=== PATIENT | female | born 1950 | race African-American/Black ===

== ENCOUNTER 2017-02-25 22:41 | Emergency (ER) | payer BC, MEDICARE ==
[~2017-02-25] VITALS: Ht 160 cm; Wt 95.0 kg
[2017-02-25] MEDS ORDERED: METO100T5 PO (23:12)
[2017-02-25] MEDS ORDERED: METF500T4 PO (23:13)
[2017-02-25] MEDS ORDERED: HYDR25TA PO (23:13)
[2017-02-25] MEDS ORDERED: LABETALOL 5MG/ML SYR 20 MG/4 ML SYRINGE IV ONE (23:45)
[2017-02-25 23:55] LABS: BASOPHILS % 0.3 % (0.0-2.0); EOSINOPHILS % 3.1 % (0.0-5.0); HEMATOCRIT. 43.2 % (36.0-48.0); HEMOGLOBIN. 15.3 g/dL (12.0-16.0); MEAN CORPUSCULAR HEMOGLOBIN 29.9 pg (28.0-32.0); MEAN CORPUSCULAR VOLUME 84.5 fL (81.0-99.0); MEAN PLATELET VOLUME 8.7 fl (7.4-10.4); MONOCYTES % 6.7 % (2.0-8.0); NEUTROPHILS % 58.9 % (40.0-76.0); PLATELET 296 x1000/uL (130-400); RED BLOOD CELL COUNT 5.11 mill/uL (4.2-5.4); RED CELL DISTRIBUTION WIDTH 14.3 % (11.6-14.6)
[2017-02-26 00:16] LABS: CARBON DIOXIDE 32 mEq/L (21-32); CHLORIDE 104 mEq/L (98-107); TROPONIN I < 0.02 ng/mL (0.00-0.04)
[2017-02-26 02:23] VITALS: BP 151/98
== END 2017-02-26 02:36 | disposition home or self-care (01) ==
LOC: ER 02-26 00:22
DX: I10 Essential (primary) hypertension (principal); R00.2 Palpitations; R06.02 Shortness of breath; R05 Cough; J45.909 Unspecified asthma, uncomplicated; E11.9 Type 2 diabetes mellitus without complications
CPT/HCPCS: 36415; 71010; 80053; 82962; 83880; 84484; 85025; 93005; 96374; 99285; J3490; Z7610

== ENCOUNTER 2017-02-28 05:54 | Emergency (ER) | payer BC, MEDICARE ==
[~2017-02-28] VITALS: Ht 160 cm; Wt 91.0 kg
[~2017-02-28 05:54] MED LIST: HYDR25TA PO; METF500T4 PO; METO100T5 PO
[2017-02-28 07:02] LABS: BASOPHILS % 1.4 % (0.0-2.0); EOSINOPHILS % 6.3 % (0.0-5.0); HEMATOCRIT. 43.1 % (36.0-48.0); HEMOGLOBIN. 14.7 g/dL (12.0-16.0); LYMPHOCYTES % 42.7 % (20.0-50.0); MEAN CORPUSCULAR VOLUME 85.1 fL (81.0-99.0); MEAN PLATELET VOLUME 8.5 fl (7.4-10.4); MONOCYTES % 7.8 % (2.0-8.0); NEUTROPHILS % 41.8 % (40.0-76.0); PLATELET 296 x1000/uL (130-400); RED BLOOD CELL COUNT 5.06 mill/uL (4.2-5.4); RED CELL DISTRIBUTION WIDTH 14.4 % (11.6-14.6)
[2017-02-28 07:12] LABS: PARTIAL THROMBOPLASTIN TIME 32.6 sec (24.0-34.0); PROTHROMBIN TIME 10.6 sec
[2017-02-28] MEDS ORDERED: LABETALOL HCL 20MG/4ML CARPUJECT IV ONE (07:15)
[2017-02-28 07:17] LABS: CARBON DIOXIDE 34 mEq/L (21-32); CHLORIDE 101 mEq/L (98-107)
[2017-02-28 07:22] LABS: TROPONIN I < 0.02 ng/mL (0.00-0.04)
[2017-02-28] MEDS ORDERED: LABETALOL 5MG/ML SYR 20 MG/4 ML SYRINGE IV ONE (07:30)
[2017-02-28 08:27] VITALS: BP 141/85
== END 2017-02-28 09:12 | disposition home or self-care (01) ==
LOC: ER 05:54
DX: I10 Essential (primary) hypertension (principal); E78.00 Pure hypercholesterolemia, unspecified; E11.9 Type 2 diabetes mellitus without complications; J45.909 Unspecified asthma, uncomplicated; Z88.8 Allergy status to other drugs, medicaments and biological substances
CPT/HCPCS: 36415; 71010; 80053; 82962; 83690; 84484; 85025; 85610; 85730; 93005; 96374; 99285; J3490

== ENCOUNTER 2017-10-18 18:55 | Inpatient (IN) | payer BC, MEDICARE ==
[~2017-10-18] VITALS: Ht 167.6 cm; Wt 84.9 kg
[~2017-10-18 18:55] MED LIST changes: +METO100T16 PO; -METO100T5 PO
[2017-10-18 20:44] LABS: BASOPHILS % 0.7 % (0.0-2.0); EOSINOPHILS % 0.7 % (0.0-5.0); HEMATOCRIT. 43.2 % (36.0-48.0); HEMOGLOBIN. 14.4 g/dL (12.0-16.0); LYMPHOCYTES % 15.9 % (20.0-50.0); MEAN CORPUSCULAR VOLUME 86.8 fL (81.0-99.0); MONOCYTES % 5.9 % (2.0-8.0); NEUTROPHILS % 76.8 % (40.0-76.0); PLATELET 309 x1000/uL (130-400); RED BLOOD CELL COUNT 4.98 mill/uL (4.2-5.4); RED CELL DISTRIBUTION WIDTH 14.2 % (11.6-14.6)
[2017-10-18 20:50] LABS: CHLORIDE 100 mEq/L (98-107)
[2017-10-18] MEDS ORDERED: ENOXAPARIN 100MG/ML SYR SUBCUT ONE (22:30)
[2017-10-18] MEDS ORDERED: ASPIRIN 325MG EC TABLET PO ONE (22:30)
[2017-10-18] MEDS ORDERED: IPRATROPIUM/ALBUTEROL 0.5-3(2.5)MG/3ML NEB INH PRN (22:45)
[2017-10-18] MEDS ORDERED: LORAZEPAM 0.5MG TABLET PO PRN (22:45)
[2017-10-18] MEDS ORDERED: MORPHINE SULFATE 4 MG/ML CPJ (NOT FOR IM USE) IV PRN (22:45)
[2017-10-18] MEDS ORDERED: ACETAMINOPHEN 325MG TABLET PO PRN (22:45)
[2017-10-18] MEDS ORDERED: ONDANSETRON HCL 4MG/2ML VIAL IV PRN (22:45)
[2017-10-18] MEDS ORDERED: DIPHENHYDRAMINE 50MG/ML VIAL IV PRN (22:45)
[2017-10-18] MEDS ORDERED: NA PHOS,M-B/NA PHOS,DI-BA ENEMA 118ML PR PRN (22:45)
[2017-10-18] MEDS ORDERED: TRAMADOL 50MG TABLET PO PRN (22:45)
[2017-10-18] MEDS ORDERED: MAGNESIUM/ALUMINUM HYDROXIDE/SIMETHICONE 30ML UDC PO PRN (22:45)
[2017-10-18] MEDS ORDERED: DEXTROSE 50% WATER 50ML SYRINGE IV PRN (22:45)
[2017-10-18] MEDS ORDERED: GUAIFENESIN 200MG/10ML SUGAR FREE UDC PO PRN (22:45)
[2017-10-18] MEDS ORDERED: NITROGLYCERIN 0.4MG TABLET SL SL PRN (22:45)
[2017-10-18] MEDS: CLONIDINE 0.1MG TABLET PO PRN (23:31)
[2017-10-19 06:34] LABS: CREATINE KINASE MB FRACTION 1.9 ng/mL (0.5-3.6)
[2017-10-19] MEDS: CLONIDINE 0.1MG TABLET PO PRN (07:52)
[2017-10-19] MEDS: INSULIN LISPRO 100 UNITS/ML SUBCUT SCH ×4 (08:20→21:00)
[2017-10-19 09:00] VITALS: BP 165/112
[2017-10-19] MEDS ORDERED: LISINOPRIL 20MG TABLET PO SCH (09:00)
[2017-10-19] MEDS ORDERED: AMLODIPINE 2.5MG TABLET PO SCH (09:00)
[2017-10-19] MEDS: BLOOD SUGAR DIAGNOSTIC STRIP TEST SCH ×4 (09:25→21:23)
[2017-10-19] MEDS: FAMOTIDINE 20MG/2ML VIAL IV SCH ×2 (09:26→21:12)
[2017-10-19] MEDS: ENOXAPARIN 60MG/0.6ML SYR SUBCUT SCH ×2 (09:27→21:15)
[2017-10-19] MEDS: METOPROLOL TARTRATE 25MG TABLET PO SCH ×2 (09:27→21:13)
[2017-10-19] MEDS: ASPIRIN 325MG EC TABLET PO SCH (09:27)
[2017-10-19] MEDS ORDERED: METF500T4 PO (10:01)
[2017-10-19] MEDS ORDERED: AMLO10TA80 PO (10:01)
[2017-10-19] MEDS ORDERED: STAR120 PO (10:01)
[2017-10-19] MEDS ORDERED: ASPI-1159 PO (10:01)
[2017-10-19] MEDS ORDERED: ALBU18HF2 IH (10:01)
[2017-10-19] MEDS ORDERED: VALS160T2 PO (10:01)
[2017-10-19] MEDS ORDERED: CLON0.3T PO (10:01)
[2017-10-19 10:04] VITALS: BP 165/112
[2017-10-19 11:49] VITALS: BP 154/101
[2017-10-19 12:34] LABS: INR 1.1; PROTHROMBIN TIME 11.4 sec (9.4-11.6)
[2017-10-19] MEDS ORDERED: HYDRALAZINE 20MG/ML VIAL IV PRN (15:15)
[2017-10-19 15:23] LABS: *AMPHETAMINES SCREEN URINE NEGATIVE (NEGATIVE); *BARBITURATES SCREEN URINE NEGATIVE (NEGATIVE); *BENZODIAZEPINES SCREEN URINE NEGATIVE (NEGATIVE); *COCAINE SCREEN URINE NEGATIVE (NEGATIVE); CANNABINOID URINE SCREEN NEGATIVE (NEGATIVE); METHADONE URINE SCREEN NEGATIVE (NEGATIVE); OPIATES URINE SCREEN NEGATIVE (NEGATIVE); PHENCYCLIDINE URINE SCREEN NEGATIVE (NEGATIVE)
[2017-10-19] MEDS: NITROGLYCERIN OINT 1GM/INCH UDPKT TD SCH ×3 (15:56→23:26)
[2017-10-19 15:59] VITALS: BP 146/106
[2017-10-19 16:11] LABS: CREATINE KINASE MB FRACTION 1.3 ng/mL (0.5-3.6)
[2017-10-19] MEDS ORDERED: ZOLPIDEM TARTRATE 5MG TABLET PO PRN (19:00)
[2017-10-19 20:00] VITALS: BP 128/90
[2017-10-19] MEDS: ATORVASTATIN CALCIUM 40MG TABLET PO SCH (21:12)
[2017-10-19] MEDS: AMLODIPINE 5MG TABLET PO SCH (21:13)
[2017-10-19 23:15] VITALS: BP 130/87
[2017-10-19] MEDS: HYDRALAZINE HCL 50MG TABLET PO SCH (23:26)
[2017-10-20] VITALS (20 sets, daily range): BP systolic 116–169; BP diastolic 62–98
[2017-10-20] MEDS: NITROGLYCERIN OINT 1GM/INCH UDPKT TD SCH ×5 (04:00→20:00)
[2017-10-20] MEDS: HYDRALAZINE HCL 50MG TABLET PO SCH ×3 (06:04→22:03)
[2017-10-20] MEDS: INSULIN LISPRO 100 UNITS/ML SUBCUT SCH ×4 (06:06→21:00)
[2017-10-20] MEDS: BLOOD SUGAR DIAGNOSTIC STRIP TEST SCH ×4 (06:06→20:29)
[2017-10-20 07:06] LABS: BASOPHILS % 0.9 % (0.0-2.0); EOSINOPHILS % 2.9 % (0.0-5.0); HEMATOCRIT. 44.1 % (36.0-48.0); HEMOGLOBIN. 15.1 g/dL (12.0-16.0); MEAN CORPUSCULAR HEMOGLOBIN 29.7 pg (28.0-32.0); MEAN CORPUSCULAR VOLUME 86.9 fL (81.0-99.0); MEAN PLATELET VOLUME 8.3 fl (7.4-10.4); NEUTROPHILS % 39.2 % (40.0-76.0); PLATELET 328 x1000/uL (130-400); RED BLOOD CELL COUNT 5.07 mill/uL (4.2-5.4); RED CELL DISTRIBUTION WIDTH 13.9 % (11.6-14.6)
[2017-10-20] MEDS: FAMOTIDINE 20MG/2ML VIAL IV SCH ×2 (08:37→20:29)
[2017-10-20] MEDS: ASPIRIN 325MG EC TABLET PO SCH (08:38)
[2017-10-20] MEDS: METOPROLOL TARTRATE 25MG TABLET PO SCH ×2 (08:38→20:28)
[2017-10-20] MEDS: AMLODIPINE 5MG TABLET PO SCH ×2 (08:38→20:29)
[2017-10-20 08:46] LABS: CHLORIDE 102 mEq/L (98-107)
[2017-10-20 09:05] LABS: HDL CHOLESTEROL 78 mg/dL (40-59); LDL CHOLESTEROL 127 mg/dL (5-100)
[2017-10-20] MEDS ORDERED: HEPARIN SODIUM 1,000 UNIT/1ML VIAL IV ONE (11:07)
[2017-10-20] MEDS ORDERED: NICARDIPINE 100MCG/ML 10ML VIAL (CATH LAB) IV ONE (11:07)
[2017-10-20] MEDS ORDERED: NITROGLYCERIN 50MCG/ML 10ML VIAL (CATH LAB) IV ONE (11:07)
[2017-10-20] MEDS ORDERED: LIDOCAINE HCL 1% 20ML VIAL (Pyxis) INJ ONE (11:44)
[2017-10-20] MEDS ORDERED: IODIXANOL 320MG/ML 100 ML BOTTLE IV ONE (11:44)
[2017-10-20] MEDS ORDERED: ASPIRIN/SOD BICARB/CITRIC ACID 324MG TAB EFF ONE (11:52)
[2017-10-20] MEDS ORDERED: MIDAZOLAM HCL 2 MG/2 ML VIAL ONE (12:05)
[2017-10-20] MEDS ORDERED: FENTANYL CITRATE/PF 50MCG/ML 2ML VIAL ONE (12:06)
[2017-10-20] MEDS ORDERED: IOVERSOL 240MG/ML 100ML BOTTLE IV ONE (12:34)
[2017-10-20] MEDS ORDERED: CLOPIDOGREL 75MG TABLET ONE (12:56)
[2017-10-20] MEDS ORDERED: HYDRALAZINE 20MG/ML VIAL ONE (13:08)
[2017-10-20] MEDS ORDERED: ONDANSETRON HCL 4MG/2ML VIAL IV PRN (13:15)
[2017-10-20] MEDS ORDERED: ATROPINE SULFATE 1MG/10ML SYR IV PRN ×2 (13:15)
[2017-10-20] MEDS ORDERED: CLOPIDOGREL 75MG TABLET PO ONE (13:15)
[2017-10-20] MEDS ORDERED: MORPHINE SULFATE 4 MG/ML CPJ (NOT FOR IM USE) IV PRN (13:15)
[2017-10-20] MEDS ORDERED: ACETAMINOPHEN 325MG TABLET PO PRN ×2 (13:15)
[2017-10-20] MEDS: LOSARTAN POTASSIUM 25 MG TABLET PO SCH ×2 (14:10→20:29)
[2017-10-20] MEDS: ATORVASTATIN CALCIUM 40MG TABLET PO SCH (20:28)
[2017-10-20] MEDS ORDERED: ATORVASTATIN CALCIUM 20MG TABLET PO SCH (21:00)
[2017-10-21] VITALS (17 sets, daily range): BP systolic 114–180; BP diastolic 64–117
[2017-10-21] MEDS: NITROGLYCERIN OINT 1GM/INCH UDPKT TD SCH ×4 (00:05→12:00)
[2017-10-21] MEDS: BLOOD SUGAR DIAGNOSTIC STRIP TEST SCH ×4 (06:36→20:22)
[2017-10-21] MEDS: HYDRALAZINE HCL 50MG TABLET PO SCH ×3 (06:42→22:22)
[2017-10-21 07:06] LABS: BASOPHILS % 0.5 % (0.0-2.0); EOSINOPHILS % 0.4 % (0.0-5.0); HEMATOCRIT. 40.2 % (36.0-48.0); HEMOGLOBIN. 13.4 g/dL (12.0-16.0); LYMPHOCYTES % 9.4 % (20.0-50.0); MEAN CORPUSCULAR VOLUME 87.5 fL (81.0-99.0); MEAN PLATELET VOLUME 8.6 fl (7.4-10.4); MONOCYTES % 3.1 % (2.0-8.0); NEUTROPHILS % 86.6 % (40.0-76.0); PLATELET 268 x1000/uL (130-400); RED CELL DISTRIBUTION WIDTH 14.1 % (11.6-14.6)
[2017-10-21] MEDS: INSULIN LISPRO 100 UNITS/ML SUBCUT SCH ×4 (07:45→20:30)
[2017-10-21 07:49] LABS: CHLORIDE 101 mEq/L (98-107)
[2017-10-21] MEDS: CLOPIDOGREL 75MG TABLET PO SCH (08:47)
[2017-10-21] MEDS: FAMOTIDINE 20MG/2ML VIAL IV SCH ×2 (08:47→20:20)
[2017-10-21] MEDS: DOCUSATE SODIUM 100MG CAPSULE PO PRN (08:47)
[2017-10-21] MEDS: ASPIRIN 325MG TABLET PO SCH (08:47)
[2017-10-21] MEDS: AMLODIPINE 5MG TABLET PO SCH ×2 (08:48→20:20)
[2017-10-21] MEDS: LOSARTAN POTASSIUM 25 MG TABLET PO SCH ×2 (08:48→20:20)
[2017-10-21] MEDS: METOPROLOL TARTRATE 25MG TABLET PO SCH ×2 (08:48→22:22)
[2017-10-21] MEDS ORDERED: POTASSIUM CHLORIDE 20MEQ TABLET SR PO NR (09:45)
[2017-10-21] MEDS: ATORVASTATIN CALCIUM 40MG TABLET PO SCH (20:20)
[2017-10-22] VITALS (9 sets, daily range): BP systolic 127–173; BP diastolic 77–104
[2017-10-22] MEDS: HYDRALAZINE HCL 50MG TABLET PO SCH (06:15)
[2017-10-22] MEDS: BLOOD SUGAR DIAGNOSTIC STRIP TEST SCH ×2 (06:20→12:12)
[2017-10-22 06:24] LABS: BASOPHILS % 0.9 % (0.0-2.0); EOSINOPHILS % 3.1 % (0.0-5.0); HEMOGLOBIN. 13.9 g/dL (12.0-16.0); LYMPHOCYTES % 32.9 % (20.0-50.0); MEAN CORPUSCULAR HEMOGLOBIN 29.6 pg (28.0-32.0); MEAN CORPUSCULAR VOLUME 87.3 fL (81.0-99.0); MEAN PLATELET VOLUME 8.7 fl (7.4-10.4); MONOCYTES % 8.2 % (2.0-8.0); NEUTROPHILS % 54.9 % (40.0-76.0); PLATELET 270 x1000/uL (130-400)
[2017-10-22] MEDS: INSULIN LISPRO 100 UNITS/ML SUBCUT SCH ×2 (07:20→12:15)
[2017-10-22 07:40] LABS: CHLORIDE 104 mEq/L (98-107)
[2017-10-22] MEDS: LOSARTAN POTASSIUM 25 MG TABLET PO SCH (08:48)
[2017-10-22] MEDS: DOCUSATE SODIUM 100MG CAPSULE PO PRN (08:49)
[2017-10-22] MEDS: CLOPIDOGREL 75MG TABLET PO SCH (08:49)
[2017-10-22] MEDS: METOPROLOL TARTRATE 25MG TABLET PO SCH (08:49)
[2017-10-22] MEDS: AMLODIPINE 5MG TABLET PO SCH (08:49)
[2017-10-22] MEDS: ASPIRIN 325MG TABLET PO SCH (09:43)
[2017-10-22] MEDS: FAMOTIDINE 20MG/2ML VIAL IV SCH (09:43)
== END 2017-10-22 13:11 | disposition home or self-care (01) | DRG 247 ==
LOC: ER 20:40 → 6WST 22:30 → EDBEDREQ 22:37 → SUPCPDRO 22:42 → ENRESERV 10-19 07:35 → 3WST 10-20 13:38
PROVIDERS: ADMIT Internal Medicine; ATTEND Internal Medicine
PROC: 027034Z Dilation of Coronary Artery, One Artery with Drug-eluting Intraluminal Device, Percutaneous Approach (ICD-10-PCS; principal; 2017-10-20)
PROC: 4A023N7 Measurement of Cardiac Sampling and Pressure, Left Heart, Percutaneous Approach (ICD-10-PCS; 2017-10-20)
PROC: B2111ZZ Fluoroscopy of Multiple Coronary Arteries using Low Osmolar Contrast (ICD-10-PCS; 2017-10-20)
DX: I21.4 Non-ST elevation (NSTEMI) myocardial infarction (principal); I11.9 Hypertensive heart disease without heart failure; E44.1 Mild protein-calorie malnutrition; J44.9 Chronic obstructive pulmonary disease, unspecified; E87.5 Hyperkalemia; E11.9 Type 2 diabetes mellitus without complications; E87.6 Hypokalemia; E66.9 Obesity, unspecified; E78.00 Pure hypercholesterolemia, unspecified; I25.9 Chronic ischemic heart disease, unspecified; Z79.4 Long term (current) use of insulin; Z79.899 Other long term (current) drug therapy; Z68.30 Body mass index [BMI] 30.0-30.9, adult; Z82.49 Family history of ischemic heart disease and other diseases of the circulatory system; Z83.3 Family history of diabetes mellitus; Z79.84 Long term (current) use of oral hypoglycemic drugs; Z88.8 Allergy status to other drugs, medicaments and biological substances
CPT/HCPCS: 36415; 71045; 80048; 80053; 80061; 80305; 82550; 82553; 82962; 83036; 83735; 83880; 84443; 84484; 85025; 85347; 85610; 92928; 93005; 93306; 93458; 93880; 93970; 96372; 97162; 97165; 99285; C1725; C1769; C1887; C1893; J0360; J1644; J1650; J1815; J2250; J2270; J2405; J3010; J3490; J7030; Q9967